=== PATIENT | male | born 1960 | race American Indian/Alaskan Native ===

== ENCOUNTER 2018-10-07 12:04 | Emergency (ER) | payer OTHER ==
--- NOTE | 2018-10-07 12:10 | Emergency Department Report ---
Blank Doc - Documentation Documentation: states he had a leash wrapped around his hand and his dog pulled 30 to 40 min [employer] 75 lbs dog unsure of last tetanus immunization left ring finger able to move the digit some PMHx none only allergy to shrimp +smoker non drinker +marijuana no other drug use
[2018-10-07 12:11] VITALS: BP 148/93
[2018-10-07] MEDS ORDERED: BOOSTRIX IM ONE (12:11)
[2018-10-07] MEDS ORDERED: MARCAINE 0.5% INFILTRATI ONE (12:26)
[2018-10-07] MEDS ORDERED: XYLOCAINE 2% INFILTRATI ONE (12:26)
[2018-10-07] MEDS ORDERED: NACL 0.9% 1,000 ML IR ONE (12:31)
--- NOTE | 2018-10-07 13:18 | XRay Report ---
LEFT HAND, 3 views: History: Left fourth finger deformity Normal bone mineralization. Medial dislocation is identified at the proximal interphalangeal joint of the fourth digit no obvious associated fracture. Remaining bony structures and joint spaces are within normal limits. IMPRESSION: Dislocation at the PIP joint of the fourth digit.
--- NOTE | 2018-10-07 13:20 | XRay Report ---
LEFT HAND, 2 views: History: Finger pain. Findings: The dislocation at the PIP joint of the fourth digit has been reduced and is in anatomic alignment. No obvious fracture is visualized. The remainder of the exam is unchanged since 1223 hrs. IMPRESSION: Anatomic alignment of the fourth digit.
[2018-10-07] MEDS ORDERED: MAXIPIME/NS 2 GM/100 ML 2 GM/100 ML BAG IV ONE (13:35)
[2018-10-07] MEDS ORDERED: ceFAZolin 2 GM in NACL 0.9% 100 ML IV ONE (13:43)
--- NOTE | 2018-10-07 13:54 | Emergency Department Report ---
ED General Adult HPI - General Chief complaint: Extremity Injury, Upper Stated complaint: LFT RING FINGER INJURY/PAIN Time Seen by Provider: 10/07/18 12:08 Source: patient Mode of arrival: Ambulatory Limitations: No Limitations - History of Present Illness Initial comments: 58-year-old male was walking his Rottweiler with the leash wrapped around his finger when the dog pulled. He should sustain an open dislocation of his left ring finger at the PIP joint. He denied any other injury. He presented very stoically to the emergency department without the complaint of much pain. He denied distal numbness. He is unable to straighten his finger which is obviously dislocated associated with an open wound. He states the dog is 75 pounds of "pure muscle". -: Sudden Location: left, upper extremity Radiation: non-radiation Severity scale (0 -10): 6 Quality: aching Consistency: intermittent Associated Symptoms: denies other symptoms - Related Data Previous Rx's Medication Instructions Recorded Last Taken Type cephALEXin [Keflex] 500 mg PO QID #20 capsule 10/07/18 Unknown Rx Allergies Allergy/AdvReac Type Severity Reaction Status Date / Time SHRIMP Allergy Hives Uncoded 10/07/18 12:06 ED Review of Systems ROS: Stated complaint: LFT RING FINGER INJURY/PAIN Other details as noted in HPI Comment: All other systems reviewed and negative ED Past Medical Hx - Past Medical History Hx Hypertension: Yes - Surgical History Additional Surgical History: SHOULDER PAIN - Social History Smoking Status: Current Every Day Smoker Substance Use Type: None, Marijuana - Medications Home Medications: Home Medications Medication Instructions Recorded Confirmed Last Taken Type cephALEXin [Keflex] 500 mg PO QID #20 capsule 10/07/18 Unknown Rx ED Physical Exam - General Limitations: No Limitations General appearance: alert - Head Head exam: Present: atraumatic - Eye Eye exam: Present: normal appearance - ENT ENT exam: Present: normal exam - Neck Neck exam: Present: normal inspection - Respiratory Respiratory exam: Absent: respiratory distress - GI/Abdominal GI/Abdominal exam: Absent: distended - Extremities Exam Extremities exam: Present: other (obvious open dislocation at the PIP joint with wound and capsule opened on the ulnar side) - Neurological Exam Neurological exam: Present: CN II-XII intact (by observation only ) - Psychiatric Psychiatric exam: Present: normal affect, normal mood - Skin Skin exam: Present: other (1 cm laceration as above indicated palmar aspect PIP joint) ED Course Vital Signs 10/07/18 12:09 Temperature 98.1 F Pulse Rate 77 Respiratory 16 Rate Blood Pressure 148/93 [Left] O2 Sat by Pulse 96 Oximetry - Reevaluation(s) Reevaluation #1: Digital nerve block, the joint was irrigated with 500 mL pressure irrigation normal saline. The finger was relocated. The wound was loosely closed with 2 4-0 Prolene sutures. 10/07/18 13:59 Reevaluation #2: Ancef. Splinting. Importance of hand elevation and orthopedic follow-up is emphasized. 10/07/18 14:03 - Laceration /Wound Repair Left Hand Wound Location: upper extremity Wound Explored: clean Betadine Prep?: Yes Anesthesia: 1% Lidocaine Wound Debrided: minimal Wound Repaired With: sutures Suture Size/Type: 4:0 Number of Sutures: 2 Layer Closure?: No Sterile Dressing Applied?: Yes (500 mL irrigation, tube dressing and splint) - Orthopedic Joint Reduction Joint #1 Consent Obtained: verbal consent Time Out Performed: No Side: left Joint Reduction Location: finger Analgesia: digital block Local Anesthetic Used: Lidocaine 1%, Bupivicaine 0.5% Amount of Anesthetic Used (mls): 5 Technique Used: traction/counter-traction, direct manipulation Post-Reduction Neuro Exam: intact (Pre reduction sensory present patient unable to move the finger at the joint) Post-Reduction Vascular Exam: intact (post reduction. Patient is able to flex at the DIP and PIP. Wrist block) Post Reduction X-Ray Obtained: Yes Post Reduction X-Ray Results: reduced Splint Applied: Yes Patient Tolerated Procedure: well Critical care attestation.: If time is entered above; I have spent that time in minutes in the direct care of this critically ill patient, excluding procedure time. ED Disposition Clinical Impression: Dislocation of finger, open Qualifiers: Encounter type: initial encounter Qualified Code(s): S63.259A - Unspecified dislocation of unspecified finger, initial encounter; S61.209A - Unspecified open wound of unspecified finger without damage to nail, initial encounter Disposition: - TO HOME OR SELFCARE Is pt being admited?: No Does the pt Need Aspirin: No Condition: Stable Instructions: Finger Dislocation (ED) Additional Instructions: It is important to remain in the splint until further instruction by the orthopedist. It is important to keep your hand elevated over the weekend. Return to this emergency department if you have any sign of infection. Check the wound daily and redress. Replaced the splint after dressing. Prescription for antibiotic. I think Motrin should be adequate for pain management. See the orthopedist on Wednesday. If you are having problems with the dressing, come to the emergency department over the weekend as needed. Prescriptions: cephALEXin [Keflex] 500 mg PO QID #20 capsule Referrals: HAZEL CONSTANTINO III, MD [Primary Care Provider] - 3-5 Days ANGEL FLOWERS MD [Staff Physician] - 2-3 Days Time of Disposition: 14:06
== END 2018-10-07 14:46 | disposition home or self-care (01) ==
LOC: ED 12:04
DX: S63.255A Unspecified dislocation of left ring finger, initial encounter (principal); S61.205A Unspecified open wound of left ring finger without damage to nail, initial encounter; T75.00XA Unspecified effects of lightning, initial encounter; Y93.89 Activity, other specified; Y92.89 Other specified places as the place of occurrence of the external cause; Y99.8 Other external cause status
CPT/HCPCS: 26770; 73120; 73130; 90471; 90715; 96365; 99284; J0690; J0692